=== PATIENT | male | born 1965 | race Two or more races ===

== ENCOUNTER 2022-02-14 11:27 | Inpatient (IN) | payer OTHER ==
[~2022-02-14] VITALS: Ht 175.3 cm; Wt 104.3 kg
[2022-02-14] MEDS ORDERED: NOREPINEPHRINE 8 MG/250ML KIT 250 ML IV ONE (11:39)
[2022-02-14] MEDS ORDERED: NOREPINEPHRINE 8 MG/250ML KIT 250 ML IV SCH (12:00)
[2022-02-14] MEDS ORDERED: SODIUM CHLORIDE 0.9% 1,000 ML IV ONE (12:15)
[2022-02-14] MEDS: ONDANSETRON HCL 4 MG/2 ML VIAL IV PRN ×4 (12:18→21:21)
[2022-02-14] MEDS: MORPHINE SULFATE INJ 2 MG/ml SYRG IV PRN ×3 (12:19→21:22)
[2022-02-14 12:37] LABS: Hematocrit 38.2 % (41.0-53.0); Hemoglobin 12.1 g/dL (13.5-17.5); Mean Corpuscular Hemoglobin 27.2 pg (28.0-32.0); Mean Corpuscular Hgb Conc. 31.7 g/dL (32.0-36.0); Mean Corpuscular Volume 85.8 fL (80.0-100.0); Red Blood Cells 4.45 10^6/uL (4.5-5.90); White Blood Cell 19.1 10^3/uL (4.4-10.8)
[2022-02-14 12:40] LABS: Lactic Acid w/Reflex 2.6 mmol/L (0.4-2.0)
[2022-02-14 12:45] LABS: Red Cell Distribution Width 23.3 % (11.8-14.3)
[2022-02-14 13:02] LABS: INR 2.92 (0.9-1.15); Partial Thromboplastin Time 48.4 sec (24.6-33.4)
[2022-02-14 14:57] LABS: Basophils # (auto) 0.1 10 ^3/uL (0-0.2); Basophils % (auto) 0.6 % (0.0-2.0); Eosinophils # (auto) 0 10 ^3/uL (0-0.8); Eosinophils % (auto) 0.2 % (0.0-7.0); Lymphocytes # (auto) 0.4 10 ^3/uL (0.4-5.4); Lymphocytes % (auto) 2.2 % (10.0-50.0); Monocytes % (auto) 5.1 % (0.0-12.0); Neutrophils # (auto) 17.8 10 ^3/uL (1.6-8.6); Neutrophils % (auto) 91.9 % (37.0-80.0); Nucleated Red Blood Cells % 0.2 %
[2022-02-14 16:22] LABS: BUN/Creatinine Ratio 18.8; Calcium 7.5 mg/dL (8.5-10.1)
[2022-02-14 16:23] LABS: Albumin 1.2 g/dL (3.4-5.0); Bilirubin, Total 22.3 mg/dL (0.2-1.0); Magnesium 2.6 mg/dL (1.6-2.6); Total Protein 6.4 g/dL (6.4-8.2)
[2022-02-14 16:28] LABS: Potassium 6.2 mmol/L (3.5-5.1)
[2022-02-14] MEDS ORDERED: DEXTROSE (50%) 50ML SYRG IV ONE (16:45)
[2022-02-14 17:47] LABS: Albumin 1.2 g/dL (3.4-5.0); BUN/Creatinine Ratio 19.4; Calcium 6.9 mg/dL (8.5-10.1)
[2022-02-14 18:02] LABS: Bilirubin, Total 21.4 mg/dL (0.2-1.0); Total Protein 6.1 g/dL (6.4-8.2)
[2022-02-14 18:46] LABS: Potassium 6.1 mmol/L (3.5-5.1)
[2022-02-14] MEDS ORDERED: FLEET ENEMA(ADULT) 135 ML PR PRN (19:00)
[2022-02-14] MEDS ORDERED: MORPHINE SULFATE 10 MG/5 ML ORAL SOLN PO PRN (19:00)
[2022-02-14] MEDS ORDERED: LORazepam 0.5 MG TAB PO PRN (19:00)
[2022-02-14] MEDS ORDERED: MIDAZOLAM HCL 2MG/2ML 2ml VIAL (1mg/ml) IV ONE (21:00)
[2022-02-15] MEDS: MORPHINE SULFATE INJ 2 MG/ml SYRG IV PRN ×2 (00:47→04:50)
[2022-02-15] MEDS ORDERED: HALOPERIDOL LACTATE 5 MG/ML INJ VIAL IM PRN (01:15)
[2022-02-15] MEDS: ONDANSETRON HCL 4 MG/2 ML VIAL IV PRN (01:30)
[2022-02-15 05:20] VITALS: BP 54/25
== END 2022-02-15 06:26 | DRG 871 ==
LOC: EDBD 11:27 → ER 11:27 → OVERFLOW 18:49
PROVIDERS: ADMIT Internal Medicine; ATTEND Internal Medicine Nephrology
DX: A41.9 Sepsis, unspecified organism (principal); J18.9 Pneumonia, unspecified organism; K72.00 Acute and subacute hepatic failure without coma; R65.21 Severe sepsis with septic shock; C18.9 Malignant neoplasm of colon, unspecified; C78.7 Secondary malignant neoplasm of liver and intrahepatic bile duct; N17.9 Acute kidney failure, unspecified; Z20.822 Contact with and (suspected) exposure to COVID-19; Z66 Do not resuscitate; N18.9 Chronic kidney disease, unspecified; Z85.038 Personal history of other malignant neoplasm of large intestine
CPT/HCPCS: 36415; 71045; 80053; 82140; 83605; 83735; 83880; 84484; 85007; 85025; 85027; 85610; 85730; 87040; 93005; 96361; 96365; 96375; 99291; G0378; J2250; J2405